=== PATIENT | male | born 1970 | race African-American/Black ===

== ENCOUNTER 2021-06-11 16:00 | Emergency (ER) | payer MEDICAID ==
[~2021-06-11] VITALS: Ht 165.1 cm; Wt 73.0 kg
[2021-06-11] MEDS ORDERED: ACETAMINOPHEN 325MG TABLET PO ONE (17:00)
[2021-06-11] MEDS ORDERED: IBUPROFEN 600MG TABLET PO ONE (17:00)
[2021-06-11] MEDS ORDERED: NAPR-1176 MT (17:30)
[2021-06-11 17:44] VITALS: BP 119/74
== END 2021-06-11 17:50 | disposition home or self-care (01) ==
LOC: ER 16:00
DX: M25.512 Pain in left shoulder (principal)
CPT/HCPCS: 73030; 99283